=== PATIENT | male | born 1975 | race Caucasian/White ===

== ENCOUNTER 2017-03-18 17:01 | Inpatient (IN) ==
--- NOTE | 2017-03-18 17:34 | EKG Report ---
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
[2017-03-18 17:40] LABS: Basophils # 0.1 10*3/uL (0.0-0.2); Basophils % 0.3 % (0.0-0.8); Eosinophils # 0.2 10*3/uL (0.0-0.87); Eosinophils % 1.2 % (0.00-10.9); Hematocrit 38.2 VOL% (42.0-52.0); Hemoglobin 13.2 GM/DL (14.0-18.0); Immature Granulocytes % 0.9 %; Immature Granulocytes Absolute 0.16 #; Lymphocytes # 2.8 10*3/uL (1.4-4.0); Lymphocytes % 15.4 % (21.2-54.2); Mean Corpuscular HGB Conc 34.6 GM/DL (32-36); Mean Corpuscular Hemoglobin 33 PG (27-34); Mean Corpuscular Volume 95.5 FL (87-102); Mean Platelet Volume 9.6 FL (9.6-12.0); Monocytes # 1.1 10*3/uL (0.11-0.8); Neutrophils % 76.2 % (38.7-73.9); Platelet Count 367 T/CUMM (130-400); Red Cell Distribution Width 12.5 % (9.3-17.3); White Blood Count 18.4 T/CUMM (4-12)
--- NOTE | 2017-03-18 17:44 | XRay Report ---
Exam: XR chest 1V portable Date: 03/18/2017 5:19 PM Indication: Shortness of breath Comparison: 07/11/2015 Technical: AP portable Findings: the heart is normal in size. External cardiac leads are present. The mediastinum and bony structures reveal no acute findings. Impression: 1. No acute cardiothoracic pathology. PROCEDURE INTERPRETED AT [facility] Final Report Signed by: Dr. Cayetano Arreguin
[2017-03-18 18:00] LABS: INR 1.1; PT Patient Result 11.2 SECS; Partial Thromboplastin Time 28.3 SECS (0-40)
[2017-03-18 18:15] LABS: Alanine Aminotransferase 22 U/L (16-61); Albumin 3.3 G/DL (3.4-5.0); Alkaline Phosphatase 57 U/L (45-117); Aspartate Amino Transferase 18 U/L (0-37); Bilirubin,Total < 0.39 MG/DL (0.2-1.0); Blood Urea Nitrogen 14 MG/DL (7-18); Calcium 8.8 MG/DL (8.5-10.1); Glucose 98 MG/DL (74-106); Magnesium 1.9 MG/DL (1.8-2.4); Osmolality,Calculated 273.8 MOS/KG (273-304); Potassium 4.4 MMOL/L (3.5-5.1); Sodium 137 MMOL/L (136-145); Total Protein 6.5 G/DL (6.4-8.3); Troponin I Only < 0.015 NG/ML (0.00-0.045)
--- NOTE | 2017-03-18 19:57 | Emergency Department Note ---
Arrival - Arrival Chief Complaint: GI Bleed/Rectal Stated Complaint: throwing up blood/light headed ED Nursing Triage Note: patient throwing up blood and states he is light headed. Mode of Arrival: Ambulatory Time Seen by Provider: 03/18/17 18:02 - History of Present Illness HPI Narrative: This is a 41-year-old male who is otherwise healthy and has been complaining of some stomach upset over the past few days who was changing a tire in his car and started to feel dizzy as though he would pass out when he suddenly developed nausea and vomited blood clots on the living room floor which is on took pictures of and brought to the emergency department. The patient denies blood in his stool but just before vomiting he had a bowel movement which is around said was bloody. Vital signs are essentially normal although is slightly tachycardic. He has slight epigastric discomfort. He is a drinker of beer but did not drink today. His liver function studies are not abnormal. His INR is 1.1. He has no history of liver disease. He has no history of peptic ulcer disease. Allergies/Adverse Reactions: Allergies Allergy/AdvReac Type Severity Reaction Status Date / Time No Known Allergies Allergy Unverified 03/18/17 17:13 Review of System - Review of System Constitutional: Absent: fever, night sweats Eyes: Absent: redness, vision change Head/Ears/Nose/Throat: Absent: epistaxis, nasal drainage Respiratory: Absent: respiratory distress, wheezing Cardiovascular: Absent: dyspnea on exertion, orthopnea Gastrointestinal: Present: abdominal pain, vomiting, hematemesis, hematochezia Genitourinary male: Absent: hematuria, discharge Musculoskeletal: Absent: joint swelling, lower back pain, leg pain Skin: Absent: change in color, change in hair/nails Neurological: Absent: numbness, paresthesias Psychiatric: Absent: anxiety, depression Endocrine: Absent: heat intolerance, polydipsia Hematological/Lymphatic: Absent: easy bruising, lymphadenopathy Allergic/Immunologic: Absent: urticaria, itchy eyes Medical,Surgical,& Family Hx - Social History Smoking Status: Current every day smoker Frequency of Alcohol Use: Occasionally Type of Drug Use: None Exam Vital Signs: Vital Signs Temperature 98.9 F 03/18/17 17:29 Pulse Rate 53 L 03/18/17 18:45 Respiratory Rate 20 03/18/17 18:45 Blood Pressure 128/62 03/18/17 18:45 O2 Sat by Pulse Oximetry 97 03/18/17 18:45 - General Exam limited due to: ALOC - Head Head exam: Present: atraumatic, normocephalic - Eye Eye exam: Present: PERRL, EOMI - ENT ENT exam: Present: normal exam, normal oropharynx - Neck Neck exam: Present: normal inspection, full ROM - Chest Chest inspection: Present: normal inspection - Respiratory Respiratory exam: Present: normal lung sounds bilaterally - Cardiovascular Cardiovascular exam: Present: regular rate, normal rhythm - Abdominal Exam Abdominal exam: Present: soft, normal bowel sounds - Rectal Exam Rectal exam: Present: heme (+) stool - Extremities Exam Extremities exam: Present: normal inspection, full ROM - Back Exam Back exam: Present: normal inspection, full ROM - Neurological Exam Neurological exam: Present: alert, oriented X3, CN II-XII intact - Psychiatric Psychiatric exam: Present: normal affect, normal mood - Skin Skin exam: Present: warm, dry Results - Labs CBC & BMP: 03/18/17 17:25 03/18/17 17:25
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
[2017-03-18] MEDS ORDERED: ACETAMINOPHEN 325 MG TABLET PO PRN (23:53)
[2017-03-18] MEDS: PANTOPRAZOLE 40 MG VIAL IV SCH (23:59)
[2017-03-19] MEDS: MORPHINE 2 MG/1 ML SYRINGE IV PRN ×4 (00:01→19:07)
[2017-03-19] MEDS: ONDANSETRON 4 MG/2 ML VIAL IV PRN ×2 (00:01→09:02)
[2017-03-19] MEDS: SODIUM CHLORIDE 0.9% 1,000 ML IV SCH ×3 (00:02→17:07)
[2017-03-19 02:01] LABS: Basophils % 0.3 % (0.0-0.8); Eosinophils # 0.2 10*3/uL (0.0-0.87); Eosinophils % 1.7 % (0.00-10.9); Hematocrit 34.2 VOL% (42.0-52.0); Hemoglobin 11.7 GM/DL (14.0-18.0); Immature Granulocytes % 0.6 %; Immature Granulocytes Absolute 0.07 #; Lymphocytes # 4.5 10*3/uL (1.4-4.0); Lymphocytes % 37.2 % (21.2-54.2); Mean Corpuscular HGB Conc 34.2 GM/DL (32-36); Mean Corpuscular Hemoglobin 33 PG (27-34); Mean Corpuscular Volume 95.8 FL (87-102); Mean Platelet Volume 10.1 FL (9.6-12.0); Monocytes # 0.8 10*3/uL (0.11-0.8); Monocytes % 6.8 % (1.7-12.7); Neutrophils # 6.5 10*3/uL (1.4-7.4); Neutrophils % 53.4 % (38.7-73.9); Platelet Count 319 T/CUMM (130-400); Red Blood Count 3.57 MC/CUMM (3.8-5.5); Red Cell Distribution Width 12.7 % (9.3-17.3); White Blood Count 12.2 T/CUMM (4-12)
[2017-03-19] MEDS: cefTRIAXone 1,000 MG in SODIUM CHLORIDE 0.9% 100 ML IV SCH (06:30)
[2017-03-19 06:44] LABS: Basophils # 0.1 10*3/uL (0.0-0.2); Basophils % 0.5 % (0.0-0.8); Eosinophils # 0.3 10*3/uL (0.0-0.87); Eosinophils % 2.5 % (0.00-10.9); Hematocrit 34.2 VOL% (42.0-52.0); Hemoglobin 11.5 GM/DL (14.0-18.0); Immature Granulocytes % 0.8 %; Immature Granulocytes Absolute 0.08 #; Lymphocytes # 3.9 10*3/uL (1.4-4.0); Mean Corpuscular HGB Conc 33.6 GM/DL (32-36); Mean Corpuscular Hemoglobin 32 PG (27-34); Mean Corpuscular Volume 96.1 FL (87-102); Mean Platelet Volume 9.5 FL (9.6-12.0); Monocytes # 0.8 10*3/uL (0.11-0.8); Monocytes % 7.1 % (1.7-12.7); Neutrophils # 5.6 10*3/uL (1.4-7.4); Neutrophils % 52.1 % (38.7-73.9); Platelet Count 291 T/CUMM (130-400); Red Blood Count 3.56 MC/CUMM (3.8-5.5); Red Cell Distribution Width 12.8 % (9.3-17.3); White Blood Count 10.7 T/CUMM (4-12)
[2017-03-19 07:16] LABS: Bilirubin,Total 0.5 MG/DL (0.2-1.0); Calcium 8.7 MG/DL (8.5-10.1); Osmolality,Calculated 280.4 MOS/KG (273-304); Potassium 4.2 MMOL/L (3.5-5.1); Total Protein 6.1 G/DL (6.4-8.3)
[2017-03-19] MEDS: PANTOPRAZOLE 40 MG VIAL IV SCH ×2 (08:42→20:11)
[2017-03-19] MEDS: NICOTINE 21 MG/24 HR PATCH TRANSDERM PRN (09:02)
--- NOTE | 2017-03-19 09:53 | Gastrointestinal Consult Note ---
Assessment and Plan - Time spent with patient Time spent with patient: Greater than 30 minutes (1) Hematemesis with nausea Status: Acute Current Visit: Yes (2) Acute blood loss anemia Status: Acute Current Visit: Yes (3) Other specified counseling Status: Acute Current Visit: Yes History of Present Illness History of present illness: Mr. Medina is a 41 year old male Allergies Allergy/AdvReac Type Severity Reaction Status Date / Time No Known Allergies Allergy Unverified 03/18/17 17:13 Medical,Surgical,& Family Hx - Medical History Cardio: No history of: Cardiovascular Problems Psychological: History of: Depression, Previous Suicide Attempt Neurology: No history of: Neurological Problems Respiratory: No history of: Respiratory Problems Renal: No history of: Renal Problems Genitourinary: No history of: Problems Gastrointestinal: No history of: Liver Problems, GI Problems Musculoskeletal: History of: Back/Neck Problems - Social History Smoking Status: Current every day smoker Frequency of Alcohol Use: Occasionally Type of Drug Use: None Exam - Constitutional Vitals: Period Temp Pulse Resp BP Sys/Spears Pulse Ox Last 24 Hr 97 F-100.2 F 48-95 16-20 112-141/58-72 93-99 Results - Labs CBC & BMP: 03/19/17 06:28 03/19/17 06:28 Quality Measures - VTE Contraindication to Pharmacological VTE Prophylaxis: Active Bleeding - Stroke Symptom Onset Unknown: No Note Addendum: PLEASE NOTE -- automatic citation of patient information is unavoidable in this electronic note. I have made a reasonable effort to review the information cited , but it is not a part of my evaluation, impression, or recommendation unless specifically discussed in the dictated text that follows. As well, voice recognition software was used in the creation of this clinical note. Reasonable effort was made to identify and correct gross errors. Despite proofreading, errors in cylinder sander operator may be present, including nonsense verbiage at times. If you encounter such an error, please contact me at [phone] for discussion and correction. -- Paolo Chief complaint: vomiting blood History of present illness: This is a new patient, a 41-year-old male seen by consultation for evaluation of vomiting blood. The patient is admitted to the hospitalist service under the care of Dr. Sosa with a primary diagnosis of gastrointestinal bleeding. The patient was admitted through the emergency department last evening with primary complaint of sudden onset dizziness followed by vomiting bright red blood and recent history of dark tarry stool. Evaluation at that time revealed intact hemodynamics and near-normal hemoglobin of 13.2 g/dL but leukocytosis at 18.4. He notes that, one or two weeks ago he had an episode of severe sharp epigastric pain and what seemed to be associate constipation requiring treatment with laxative. The patient has a history of narcotic abuse and is equivocal on his drinking history, saying he sometimes drinks one or two sixpacks a day. He is not a regular NSAID user. He is unaware of any prior diagnosis of peptic ulcer or other gastrointestinal disease. Since his admission he has been treated empirically with Rocephin and proton pump inhibitor and supportively with crystalloid resuscitation and anti- emetic. He now reports feeling fairly normal. He is taking food without difficulty. He is without other complaints at present. Patient denies fever, chills, night sweats, rigors, headache, dizziness, neck pain, visual changes, redness of the eyes, dysphagia, odynophagia, difficulty chewing, chest pain, shortness of breath, diarrhea, hematochezia, melena, proctalgia, constipation, dysuria, skin changes, temperature regulation issues, flushing, easy bleeding/bruising, musculoskeletal pain, mental status change, numbness/weakness in the extremities, yellowing of the eyes/skin, cutaneous eruptions, and other complaints in general. Review of systems: 12 point review of systems was negative except as documented above. Outpatient medications: reviewed Inpatient medications: reviewed Past Medical History: depression with previous suicide attempt Social history: daily tobacco. Occasional alcohol. Episodic cocaine and marijuana use. Family history: father and paternal uncle with colorectal cancer at around 60 years of age Physical examination: Vital Signs: Current vital signs reviewed and documented above. General Appearance: well-appearing. Not acutely ill. Head: Normocephalic. Neck: Palpation of the neck revealed no abnormalities. Eyes: No scleral icterus. No scleral injection. No conjunctival pallor. Oral Cavity: Odor of breath was normal. No drooling was observed. Lips showed no abnormalities. Floor of the mouth showed no abnormalities. Pharynx: Oropharynx was normal. Lungs: Respiration rhythm and depth was normal. Cardiovascular: Heart rate and rhythm were normal. No murmurs were appreciated. Abdomen: abdomen was not distended. Abdominal palpation revealed no tenderness and no hepatosplenomegaly. Ascites was not discovered. Abdominal auscultation revealed positive bowel sounds. Musculoskeletal System: Musculoskeletal system was grossly normal. Neurological: level of consciousness was normal. Speech was normal. Skin: General appearance was normal. Color and pigmentation were normal. No skin lesions. Laboratory: white blood count 10.7, hemoglobin 11.5, hematocrit 34.2, platelets 291, INR 1.1, PT 11.2, ALT 20, AST 17, total bilirubin 0.5, BUN 19, creatinine 0.9, lipase 148 Radiology: reviewed Impressions: #1. Hematemesis -- the differential diagnosis includes peptic ulcer, gastritis/ esophagitis generally, Nadeen Colindres tear, arteriovenous malformation, and others. I agree with proton pump inhibitor, anti-emetic, and supportive care generally. I recommend continued monitoring of blood counts with transfusion as indicated and continued volume management with crystalloid resuscitation as indicated. We will plan and endoscopic evaluation with timing based on clinical progress, likely Tuesday. #2. Acute blood loss anemia -- likely the result of hematemesis. I recommend monitoring with transfusion as indicated and follow up with primary care for monitoring and management until normal. #3. Family history of colorectal cancer -- the patient is at increased risk for colorectal cancer and will generally need: cancer screening with colonoscopy no less frequently than every five years, beginning now. This can be accomplished as an outpatient. #4. Other specified counseling -- The patient was seen for greater than 30 minutes. The patient was counseled for greater than 50% of this time regarding differential diagnosis, likely diagnosis, diagnostic and therapeutic alternatives, risks/benefits/alternatives of medications and procedures, and plan of care generally. The patient expressed understanding and wishes to proceed. Recommendations: -- continued volume management -- monitor blood counts and transfuse as indicated -- agree with proton pump inhibitor -- advance diet -- upper endoscopy with timing based on clinical progress, likely Tuesday -- screening colonoscopy, outpatient ok -- thank you for this consultation. We will follow with you.
[2017-03-19 09:54] LABS: Apearance,Urine CLEAR (Clear); Bilirubin,Urine Negative (Negative); Blood, Urine Negative (Negative); Glucose,Urine (UA) Negative (Negative); Ketones,Urine Negative (Negative); Nitrite,Urine Negative (Negative); Protein,Urine Negative; RBC,Urine <1 /HPF (0-4); Urine Color Yellow (Yellow); Urine Specific Gravity 1.013 (1.001-1.035); Urine Urobilinogen < 2.0 EU/DL (0.2-1.0); WBC,Urine <1 /HPF (0-6)
--- NOTE | 2017-03-19 10:37 | Hospitalist Progress Note ---
Assessment and Plan (1) Hematemesis with nausea Status: Acute Assessment and plan: He has experienced no further episodes of hematemesis. Gastroenterology has been consulted. Current Visit: Yes (2) Acute blood loss anemia Status: Acute Assessment and plan: His hematocrit and hemoglobin are 34.2 and 11.5 respectively. Current Visit: Yes Hospitalist: Subjective Interval history: Patient feels well today. He has not experienced any further episodes of hematemesis. He denies abdominal pain. Gastroenterology has been consulted. Exam - Constitutional Vitals: Period Temp Pulse Resp BP Sys/Spears Pulse Ox Last 24 Hr 97 F-100.2 F 48-95 16-20 112-141/58-72 93-99 General appearance: normal weight - Head Head exam: Present: normal inspection - Neck Neck exam: Present: normal inspection - Respiratory Respiratory exam: Present: clear to auscultation bilaterally - Cardiovascular Cardiovascular exam: Present: regular rate and rhythm - GI/Abdominal GI/Abdominal exam: Present: normal bowel sounds, soft, other (Nontender with no palpable masses or hepatosplenomegaly.) - Extremities Exam Extremities exam: Present: normal inspection - Neurological Exam Neurological exam: Present: alert - Psychiatric Psychiatric exam: Present: normal affect - Skin Skin exam: Present: normal color, warm, intact Results - Labs CBC & BMP: 03/19/17 06:28 03/19/17 06:28 Quality Measures - VTE Contraindication to Pharmacological VTE Prophylaxis: Active Bleeding - Stroke Symptom Onset Unknown: No
[2017-03-20] MEDS: SODIUM CHLORIDE 0.9% 1,000 ML IV SCH ×2 (05:10→12:56)
[2017-03-20] MEDS: cefTRIAXone 1,000 MG in SODIUM CHLORIDE 0.9% 100 ML IV SCH (05:11)
[2017-03-20 07:07] LABS: Basophils % 0.2 % (0.0-0.8); Eosinophils # 0.3 10*3/uL (0.0-0.87); Eosinophils % 4.2 % (0.00-10.9); Hematocrit 31.3 VOL% (42.0-52.0); Hemoglobin 10.6 GM/DL (14.0-18.0); Immature Granulocytes % 0.5 %; Immature Granulocytes Absolute 0.04 #; Lymphocytes # 3.1 10*3/uL (1.4-4.0); Lymphocytes % 38.4 % (21.2-54.2); Mean Corpuscular HGB Conc 33.9 GM/DL (32-36); Mean Corpuscular Hemoglobin 33 PG (27-34); Mean Corpuscular Volume 96.9 FL (87-102); Mean Platelet Volume 10.1 FL (9.6-12.0); Monocytes # 0.6 10*3/uL (0.11-0.8); Monocytes % 7.6 % (1.7-12.7); Neutrophils % 49.1 % (38.7-73.9); Platelet Count 280 T/CUMM (130-400); Red Blood Count 3.23 MC/CUMM (3.8-5.5); Red Cell Distribution Width 12.8 % (9.3-17.3); White Blood Count 8.2 T/CUMM (4-12)
[2017-03-20 07:42] LABS: Calcium 8.3 MG/DL (8.5-10.1); Osmolality,Calculated 282.1 MOS/KG (273-304); Potassium 4.4 MMOL/L (3.5-5.1)
[2017-03-20] MEDS: PANTOPRAZOLE 40 MG VIAL IV SCH ×2 (08:42→21:41)
[2017-03-20] MEDS: NICOTINE 21 MG/24 HR PATCH TRANSDERM PRN (10:02)
--- NOTE | 2017-03-20 13:10 | Hospitalist Progress Note ---
Assessment and Plan (1) GI bleed Status: Acute Assessment and plan: No further bleeding at this time. Hemodynamics are stable. Plan for EGD in a.m. Current Visit: Yes (2) Acute blood loss anemia Status: Acute Assessment and plan: CBC in a.m. Current Visit: Yes Hospitalist: Subjective Interval history: The patient is resting comfortably. He has been able to ambulate on the floor. No further nausea or vomiting. Hematocrit appears to be stable. Scheduled for EGD on tomorrow. Exam - Constitutional Vitals: Period Temp Pulse Resp BP Sys/Spears Pulse Ox Last 24 Hr 97.1 F-98.5 F 47-83 18-20 99-131/52-82 95-99 General appearance: normal weight - Head Head exam: Present: normal inspection - ENT ENT exam: Present: normal exam - Neck Neck exam: Present: normal inspection - Respiratory Respiratory exam: Present: clear to auscultation bilaterally - Cardiovascular Cardiovascular exam: Present: regular rate and rhythm - GI/Abdominal GI/Abdominal exam: Present: normal bowel sounds - Extremities Exam Extremities exam: Present: normal inspection - Back Exam Back exam: Present: normal inspection - Neurological Exam Neurological exam: Present: alert, oriented X3, CN II-XII intact - Psychiatric Psychiatric exam: Present: normal affect, normal mood - Skin Skin exam: Present: normal color, dry Results - Labs CBC & BMP: 03/20/17 05:40 03/20/17 05:40 Quality Measures - VTE Contraindication to Pharmacological VTE Prophylaxis: Active Bleeding - Stroke Symptom Onset Unknown: No
[2017-03-20] MEDS: MORPHINE 2 MG/1 ML SYRINGE IV PRN (17:19)
[2017-03-21] MEDS: SODIUM CHLORIDE 0.9% 1,000 ML IV SCH ×4 (03:46→17:32)
[2017-03-21] MEDS: MORPHINE 2 MG/1 ML SYRINGE IV PRN ×2 (03:51→12:55)
[2017-03-21] MEDS: cefTRIAXone 1,000 MG in SODIUM CHLORIDE 0.9% 100 ML IV SCH (05:00)
[2017-03-21 06:44] LABS: Basophils % 0.4 % (0.0-0.8); Eosinophils # 0.3 10*3/uL (0.0-0.87); Eosinophils % 4.1 % (0.00-10.9); Hematocrit 29.5 VOL% (42.0-52.0); Hemoglobin 9.9 GM/DL (14.0-18.0); Immature Granulocytes % 0.4 %; Immature Granulocytes Absolute 0.03 #; Lymphocytes # 2.8 10*3/uL (1.4-4.0); Lymphocytes % 39.1 % (21.2-54.2); Mean Corpuscular HGB Conc 33.6 GM/DL (32-36); Mean Corpuscular Hemoglobin 33 PG (27-34); Mean Corpuscular Volume 97.4 FL (87-102); Mean Platelet Volume 10.1 FL (9.6-12.0); Monocytes # 0.5 10*3/uL (0.11-0.8); Monocytes % 7.1 % (1.7-12.7); Neutrophils # 3.4 10*3/uL (1.4-7.4); Neutrophils % 48.9 % (38.7-73.9); Platelet Count 245 T/CUMM (130-400); Red Blood Count 3.03 MC/CUMM (3.8-5.5); Red Cell Distribution Width 12.8 % (9.3-17.3)
[2017-03-21] MEDS ORDERED: LIDOCAINE 2% 5 ML VIAL ONE (11:33)
[2017-03-21] MEDS ORDERED: PROPOFOL 200 MG/20 ML VIAL IV ONE (11:33)
--- NOTE | 2017-03-21 11:42 | History and Physical Update ---
History and Physical Update - Physical Exam Mental Status: alert and oriented Heart: regular rate and rhythm Lung: clear to auscultation Abdomen: within normal limits Vitals: within normal limits
--- NOTE | 2017-03-21 11:45 | Operative Note ---
Date of procedure: 03/21/17 Pre-op diagnosis: Hematemesis Procedure: EGD 41-year-old white male admitted with hematemesis now for EGD to further evaluate. Informed consent was obtained the patient He was sedated with MAC anesthesia per anesthesia protocol. Patient was placed in left lateral decubitus position the Olympus flexible video upper endoscope was inserted into the oral cavity under direct vision the esophagus was intubated. Findings: Esophagus-normal esophageal mucosa with no significant abnormality in the proximal mid esophagus. The distal esophagus small hiatal hernia hernia and what appears to be healing Nadeen-Colindres tear. No varices or Telles's was identified no stricture was seen. Stomach-normal insufflation normal mucosa to direct retroflexed views of the body fundus cardia and antrum the stomach. Pylorus-pyloric channel duodenal bulb ulceration approximately 1 cm deep ulcer with no visible vessel no active bleeding. Duodenum-ulcer as above otherwise normal to the third portion of duodenum. The procedure terminated placed our procedure well his discharge recovery in good condition. Postop diagnosis: 1. Acute pyloric channel duodenal bulb ulcer-no active bleeding continue PPI treatment avoid nonsteroidals. Check stool for H. pylori if positive will treat 2. Nadeen-Colindres tear no specific treatment other than continued acid suppression and avoidance of vomiting. Anesthesia: MAC Surgeon / Physician: Pa Guillaume Estimated blood loss: none Specimens: none sent Condition: stable Disposition: post procedure unit Results - Labs CBC & BMP: 03/21/17 05:48 03/20/17 05:40
--- NOTE | 2017-03-21 11:46 | Anesthesia Post-Op ---
Anesthesia Post OP - Post Ansesthetic Evaluation Patient seen in post op: Yes Resp: within normal limits CV: within normal limits Mental: within normal limits Temp: within normal limits [id number]-Uiloawove: within normal limits Nausea and Vomiting: within normal limits Pain: within normal limits
[2017-03-21] MEDS: PANTOPRAZOLE 40 MG VIAL IV SCH ×2 (12:50→20:35)
[2017-03-21] MEDS: NICOTINE 21 MG/24 HR PATCH TRANSDERM PRN (12:58)
--- NOTE | 2017-03-21 15:29 | Hospitalist Progress Note ---
Assessment and Plan (1) GI bleed Status: Acute Assessment and plan: EGD showed 1. Acute pyloric channel duodenal bulb ulcer-no active bleeding 2. Nadeen-Colindres tear Plan Follow GI's recommendations Monitor cbc DC soon Current Visit: Yes (2) Depression Status: Chronic Assessment and plan: stable Current Visit: Yes (3) Leukocytosis Status: Acute Assessment and plan: Resolved. BC, UC are negative Consider dcing Rocephin Current Visit: Yes Hospitalist: Subjective Interval history: Patient seen, no episode of hemetemesis since admission.He had an EGD today Exam - Constitutional Vitals: Period Temp Pulse Resp BP Sys/Spears Pulse Ox Last 24 Hr 97 F-98.6 F 63-86 16-20 111-145/59-78 93-100 General appearance: no acute distress - Head Head exam: Present: normal inspection - Eye Eye exam: Present: EOMI - Respiratory Respiratory exam: Present: clear to auscultation bilaterally - Cardiovascular Cardiovascular exam: Present: regular rate and rhythm - GI/Abdominal GI/Abdominal exam: Present: normal bowel sounds - Extremities Exam Extremities exam: Present: normal inspection - Neurological Exam Neurological exam: Present: alert, oriented X3 Results - Labs CBC & BMP: 03/21/17 05:48 03/20/17 05:40 Lab Results: I have reviewed the past 24 hour labs Quality Measures - VTE Contraindication to Pharmacological VTE Prophylaxis: Active Bleeding - Stroke Symptom Onset Unknown: No
[2017-03-22] MEDS: SODIUM CHLORIDE 0.9% 1,000 ML IV SCH ×3 (02:01→20:41)
[2017-03-22] MEDS: cefTRIAXone 1,000 MG in SODIUM CHLORIDE 0.9% 100 ML IV SCH (05:12)
--- NOTE | 2017-03-22 07:59 | Gastrointestinal Progress Note ---
Assessment and Plan (1) Hematemesis with nausea Status: Acute Assessment and plan: 03/22-no complaints of abdominal pain, nausea or vomiting. No overt bleeding. EGD findings noted as below. H&H stable at 04/22. H. pylori stool results pending. Plan an addendum to followed by Dr. Mccray. Current Visit: Yes Gastroenterology - PN: Subj Interval history: CC: Hematemesis Patient is seen, asleep, however easily arousable to verbal stimuli. States he had an uneventful night. He is denying any abdominal pain, nausea or vomiting. He is tolerating regular diet without difficulty. Denies any signs of overt bleeding. EGD findings on yesterday of pyloric channel duodenal bulb ulcer as well as Nadeen-Colindres tear. Stools are pending for H. pylori. H&H is stable at 04/22. Abdomen soft, nontender. ROS: Denies shortness of breath or chest pain Exam (Progress Note) - Constitutional Vitals: Period Temp Pulse Resp BP Sys/Spears Pulse Ox Last 24 Hr 96.8 F-97.7 F 59-97 16-20 118-154/68-87 95-100 General appearance: normal weight, no acute distress - Head Head exam: Present: normal inspection, normocephalic - Eye Eye exam: Present: other (Lids and conjunctive are unremarkable). Absent: scleral icterus - ENT ENT exam: Present: normal exam, normal oropharynx - Neck Neck exam: Present: normal inspection - Respiratory Respiratory exam: Present: clear to auscultation bilaterally. Absent: rales, rhonchi, wheezes - Cardiovascular Cardiovascular exam: Present: regular rate and rhythm. Absent: diastolic murmur , JVD, systolic murmur - GI/Abdominal GI/Abdominal exam: Present: normal bowel sounds, soft. Absent: ascites, distended, mass, organomegaly, tenderness - Extremities Exam Extremities exam: Present: normal inspection, full ROM - Back Exam Back exam: Present: normal inspection - Neurological Exam Neurological exam: Present: alert, oriented X3 - Psychiatric Psychiatric exam: Present: normal affect, normal mood - Skin Skin exam: Present: normal color, warm, dry Results - Labs CBC & BMP: 03/21/17 05:48 03/20/17 05:40 Lab Results: I have reviewed the past 24 hour labs
[2017-03-22] MEDS: PANTOPRAZOLE 40 MG VIAL IV SCH ×2 (09:40→20:38)
[2017-03-22] MEDS ORDERED: CYCLOBENZAPRINE 10 MG TABLET PO PRN (11:36)
--- NOTE | 2017-03-22 11:36 | Hospitalist Progress Note ---
Hospitalist: Subjective Interval history: Patient has no complaints of hematemesis/n,v/abdominal. He notes some unchanged chronic LBP. Exam - Constitutional Vitals: Period Temp Pulse Resp BP Sys/Spears Pulse Ox Last 24 Hr 96.8 F-97.7 F 59-97 16-20 118-154/66-87 95-100 General appearance: over weight - Head Head exam: Present: normal inspection - Eye Eye exam: Present: EOMI Pupils: Present: PARESH - Respiratory Respiratory exam: Present: clear to auscultation bilaterally. Absent: rales, rhonchi, wheezes - Cardiovascular Cardiovascular exam: Present: regular rate and rhythm - GI/Abdominal GI/Abdominal exam: Present: normal bowel sounds, soft. Absent: distended, tenderness - Extremities Exam Extremities exam: Absent: edema - Neurological Exam Neurological exam: Present: oriented X3 - Psychiatric Psychiatric exam: Present: normal affect, normal mood Results - Labs CBC & BMP: 03/21/17 05:48 03/20/17 05:40 - Impressions 1. UGIB: 2nd to duodenal ulcer; seen by GI and noted plan for stool H. pylori antigen; on PPI 2. ABLA 2nd to GIB: Most recent HCT (03/21) is slowing dropping (03/19: 34); on PPI; monitor; transfuse if hb<7 or <8 if symptomatic 3. Leukocytosis: resolved based on wbc 03/21/17; afebrile; bcx/ucx negative; will d/c rocephin 4. Tobacco use: on nicotine patch 5. Chronic low back pain: avoid opioids as much as possible; avoid NSAIDs as well; muscle relaxant prn Plan: as noted above; follow up labs Quality Measures - VTE Contraindication to Pharmacological VTE Prophylaxis: Active Bleeding - Stroke Symptom Onset Unknown: No
--- NOTE | 2017-03-22 15:05 | Gastrointestinal Progress Note ---
<KinNica Mervin - Last Filed: 03/22/17 15:04> Assessment and Plan (1) Hematemesis with nausea Status: Acute Assessment and plan: 03/22-no complaints of abdominal pain, nausea or vomiting. No overt bleeding. EGD findings noted as below. H&H stable at 04/22. H. pylori stool results pending. Plan an addendum to followed by Dr. Guillaume. Current Visit: Yes Gastroenterology - PN: Subj Interval history: CC: Hematemesis Patient is seen, asleep, however easily arousable to verbal stimuli. States he had an uneventful night. He is denying any abdominal pain, nausea or vomiting. He is tolerating regular diet without difficulty. Denies any signs of overt bleeding. EGD findings on yesterday of pyloric channel duodenal bulb ulcer as well as Nadeen-Colindres tear. Stools are pending for H. pylori. H&H is stable at 04/22. Abdomen soft, nontender. ROS: Denies shortness of breath or chest pain Period Temp Pulse Resp BP Sys/Spears Pulse Ox Last 24 Hr 96.8 F-97.7 F 59-97 16-20 118-154/68-87 95-100 Exam (Progress Note) - Constitutional Vitals: Period Temp Pulse Resp BP Sys/Spears Pulse Ox Last 24 Hr 96.8 F-98.6 F 59-97 16-20 118-154/66-87 95-98 - Other Additional findings: General appearance: normal weight, no acute distress - Head Head exam: Present: normal inspection, normocephalic - Eye Eye exam: Present: other (Lids and conjunctive are unremarkable). Absent: scleral icterus - ENT ENT exam: Present: normal exam, normal oropharynx - Neck Neck exam: Present: normal inspection - Respiratory Respiratory exam: Present: clear to auscultation bilaterally. Absent: rales, rhonchi, wheezes - Cardiovascular Cardiovascular exam: Present: regular rate and rhythm. Absent: diastolic murmur , JVD, systolic murmur - GI/Abdominal GI/Abdominal exam: Present: normal bowel sounds, soft. Absent: ascites, distended, mass, organomegaly, tenderness - Extremities Exam Extremities exam: Present: normal inspection, full ROM - Back Exam Back exam: Present: normal inspection - Neurological Exam Neurological exam: Present: alert, oriented X3 - Psychiatric Psychiatric exam: Present: normal affect, normal mood - Skin Skin exam: Present: normal color, warm, dry Results - Labs CBC & BMP: 03/21/17 05:48 03/20/17 05:40 Lab Results: I have reviewed the past 24 hour labs <Pa Guillaume - Last Filed: 03/22/17 16:56> Exam (Progress Note) - Constitutional Vitals: Period Temp Pulse Resp BP Sys/Spears Pulse Ox Last 24 Hr 96.9 F-98.6 F 68-97 16-20 118-154/66-86 95-98 Results - Labs CBC & BMP: 03/21/17 05:48 03/20/17 05:40
[2017-03-22] MEDS: MORPHINE 2 MG/1 ML SYRINGE IV PRN (17:38)
[2017-03-22 18:52] LABS: Apearance,Urine CLEAR (Clear); Bilirubin,Urine Negative (Negative); Blood, Urine NEGATIVE (Negative); Glucose,Urine (UA) Negative (Negative); Ketones,Urine Negative (Negative); Nitrite,Urine Negative (Negative); Protein,Urine Negative; RBC,Urine 1 /HPF (0-4); Urine Color Yellow (Yellow); Urine Specific Gravity 1.005 (1.001-1.035); Urine Urobilinogen 0.2 EU/DL (0.2-1.0)
[2017-03-23] MEDS: SODIUM CHLORIDE 0.9% 1,000 ML IV SCH ×2 (04:46→10:21)
[2017-03-23 08:53] VITALS: BP 119/83
[2017-03-23] MEDS: PANTOPRAZOLE 40 MG VIAL IV SCH (10:28)
--- NOTE | 2017-03-23 10:37 | Discharge Summary ---
Hospital Course - Hospital Course Hospital Course: Patient was admitted with complaints of hematemesis. He was started on PPI and given IVFs. His h/h was monitored, and he did not require transfusion. He was seen by GI and an EGD was done. It showed an acute pyloric channel duodenal bulb ulcer and a healed M-W tear. Recommendation was to continue PPI. He will need to avoid NSAID therapy. Patient has remained hemodynamically and clinically stable. h/h have been fairly stable. He is safe for discharge. Discharge diagnosis: 1. Hematemesis 2. Acute pyloric channel duodenal bulb ulcer 3. Acute blood loss anemia: h/h stable 4. family history of colorectal cancer: GI recommended outpatient colonoscopy Discharge medications: see medication reconcilation list Discharge status: stable Discharge disposition: home Follow up: with PCP in 1-2 weeks; patient does not have a PCM; so, he will see a provider at the [facility] Function, elimination, and locomotion: independent Discharge Plan - Discharge Data Condition at Discharge: Stable Discharge Diet: regular diet (avoid motrin, aleeve, naprosyn, etc) Activity: resume usual activities as tolerated Hygiene: no restrictions - Discharge Medications New Pantoprazole Tab [Protonix Tab] 40 mg PO BID #60 tablet - Follow Up or Referral - Forms/Instructions Additional Discharge Instructions: follow up with a provider at the [facility] in 1-2 weeks Exam - Constitutional Vitals: Period Temp Pulse Resp BP Sys/Spears Pulse Ox Last 24 Hr 96.5 F-98.6 F 65-90 16-22 119-143/76-95 95-97 General appearance: over weight - Head Head exam: Present: normal inspection - Eye Eye exam: Present: EOMI Pupils: Present: PARESH - ENT ENT exam: Present: normal exam - Respiratory Respiratory exam: Present: clear to auscultation bilaterally. Absent: rales, rhonchi, wheezes - Cardiovascular Cardiovascular exam: Present: regular rate and rhythm. Absent: diastolic murmur , systolic murmur - GI/Abdominal GI/Abdominal exam: Present: normal bowel sounds, soft. Absent: mass, tenderness - Extremities Exam Extremities exam: Present: normal inspection. Absent: edema - Neurological Exam Neurological exam: Present: alert, oriented X3 - Psychiatric Psychiatric exam: Present: normal affect, normal mood Discharge Results Procedures and tests throughout hospitalization: Pending Orders 03/19/17 06:28 Blood Culture Routine 03/20/17 Helicobacter pylori Ag Feces Routine Occult Blood, Stool Routine Labs on day of discharge: Labs from last 24 hours 03/22/17 17:31 Urine Color Yellow Urine Appearance Clear Urine pH 7.0 Ur Specific [place] 1.005 Urine Protein Negative Urine Glucose (UA) Negative Urine Ketones Negative Urine Blood Negative Urine Nitrate Negative Urine Bilirubin Negative Urine Urobilinogen 0.2 Urine Leukocytes Negative Urine RBC 1 Ur Culture Indicated? Not indicated Preliminary micro results at discharge 03/19/17 06:28 Blood Culture - Preliminary Blood No growth at 3 days 03/19/17 06:27 Blood Culture - Preliminary Blood No growth at 3 days DS: Provider Date of admission: 03/18/17 20:46 Primary care physician: . No PCP Attending physician on admission: Isamar Martinez MD Consults: 03/18/17 23:53 Consult to Physician [CONS] Routine Comment: GI bleed Consulting Provider: Pa Guillaume Person Notified: Nica Date Notified: 03/21/17 Time Notified: 08:29 Consult Notification Comment: Discharging clinician: Belen Barriga MD
== END 2017-03-23 10:40 | disposition home or self-care (01) | DRG 369 ==
LOC: N.ED 17:01 → SUATTDRO 20:46 → N.EDINP 20:54 → N.5E 22:04
PROVIDERS: ADMIT Internal Medicine; ATTEND Internal Medicine

== ENCOUNTER 2019-09-05 12:05 | Inpatient (IN) ==
[2019-09-05 13:25] LABS: Eosinophils % 0.2 % (0.00-10.9); Immature Granulocytes % 0.6 %; Immature Granulocytes Absolute 0.05 #; Lymphocytes % 12.4 % (21.2-54.2); Mean Corpuscular HGB Conc 30.4 GM/DL (32-36); Mean Corpuscular Volume 100.6 FL (87-102); Mean Platelet Volume 11.3 FL (9.6-12.0); Monocytes % 4.8 % (1.7-12.7); NRBC # 0.04 10*3/uL; Platelet Count 400 T/CUMM (130-400); Red Cell Distribution Width 14.9 % (9.3-17.3); White Blood Count 8.2 T/CUMM (4-12)
[2019-09-05 13:26] LABS: Apearance,Urine CLEAR (Clear); Bilirubin,Urine Negative (Negative); Blood, Urine Negative (Negative); Glucose,Urine (UA) Negative (Negative); Ketones,Urine Negative (Negative); Nitrite,Urine Negative (Negative); Protein,Urine Negative; RBC,Urine 2 /HPF (0-4); Urine Color Straw (Yellow); Urine Specific Gravity 1.006 (1.001-1.035); Urine Urobilinogen < 2.0 EU/DL (0.2-1.0)
[2019-09-05 13:29] LABS: Hematocrit 17.1 VOL% (42.0-52.0); Hemoglobin 5.2 GM/DL (14.0-18.0)
[2019-09-05] MEDS ORDERED: PANTOPRAZOLE 40 MG VIAL IV STA (13:32)
[2019-09-05 13:33] LABS: Barbiturates Screen,Urine Negative (Negative); Benzodiazepines Screen,Urine Negative (Negative); Cannabinoid Screen,Urine Negative (Negative); Opiate Screen,Urine Negative (Negative); Phencyclidine Screen,Urine Negative (Negative)
[2019-09-05] MEDS ORDERED: SODIUM CHLORIDE 0.9% 1,000 ML IV STA (13:33)
[2019-09-05 13:48] LABS: Albumin 3.3 G/DL (3.4-5.0); Bilirubin,Total 0.8 MG/DL (0.2-1.0); Calcium 8.1 MG/DL (8.5-10.1); Osmolality,Calculated 274.5 MOS/KG (273-304); Total Protein 5.8 G/DL (6.4-8.3)
[2019-09-05] MEDS ORDERED: ONDANSETRON 4 MG/2 ML VIAL IV STA (13:51)
[2019-09-05] MEDS ORDERED: HYDROmorphone 2 MG/1 ML VIAL IV STA (13:51)
[2019-09-05 14:24] LABS: % Iron Saturation 3.1 % (18-50); Ferritin 6.3 ng/ml (26-388)
[2019-09-05] MEDS ORDERED: LACTULOSE 20 GM/30 ML UDCUP PO PRN (14:33)
[2019-09-05] MEDS ORDERED: ACETAMINOPHEN 325 MG TABLET PO PRN (14:33)
[2019-09-05 14:40] LABS: Folate 4.9 NG/ML (5.4-24.0)
[2019-09-05] MEDS ORDERED: SODIUM CHLORIDE 0.9% 1,000 ML IV PRN (14:42)
[2019-09-05 17:50] LABS: Risk Ratio 2.65; Thyroid Stimulating Hormone 3.04 uIU/ml (0.358-3.74); VLDL CHOLESTEROL 20.4 MG/DL
[2019-09-05] MEDS ORDERED: INFLUENZA VIRUS VACCINE 0.5 ML SYRINGE IM ONE (19:06)
[2019-09-05] MEDS ORDERED: NICOTINE 21 MG/24 HR PATCH TRANSDERM PRN (20:19)
[2019-09-05] MEDS: PANTOPRAZOLE 40 MG TABLET PO SCH (20:53)
[2019-09-05] MEDS: ONDANSETRON 4 MG/2 ML VIAL IV PRN (22:45)
[2019-09-06 02:38] LABS: Basophils % 0.1 % (0.0-0.8); Eosinophils # 0.1 10*3/uL (0.0-0.87); Eosinophils % 0.7 % (0.00-10.9); Hematocrit 21.2 VOL% (42.0-52.0); Hemoglobin 6.5 GM/DL (14.0-18.0); Immature Granulocytes % 0.4 %; Immature Granulocytes Absolute 0.04 #; Lymphocytes # 4.4 10*3/uL (1.4-4.0); Lymphocytes % 44.7 % (21.2-54.2); Mean Corpuscular HGB Conc 30.7 GM/DL (32-36); Mean Corpuscular Volume 94.6 FL (87-102); Mean Platelet Volume 9.8 FL (9.6-12.0); Monocytes % 7.4 % (1.7-12.7); NRBC # 0.05 10*3/uL; Neutrophils % 46.7 % (38.7-73.9); Platelet Count 445 T/CUMM (130-400); Red Blood Count 2.24 MC/CUMM (3.8-5.5); Red Cell Distribution Width 16.2 % (9.3-17.3); White Blood Count 9.8 T/CUMM (4-12)
[2019-09-06 03:02] LABS: Calcium 7.8 MG/DL (8.5-10.1); Osmolality,Calculated 269.8 MOS/KG (273-304)
[2019-09-06] MEDS ORDERED: SODIUM CHLORIDE 0.9% 1,000 ML IV PRN (07:35)
[2019-09-06] MEDS ORDERED: MORPHINE 4 MG/1 ML VIAL IV ONE (08:23)
[2019-09-06] MEDS: ONDANSETRON 4 MG/2 ML VIAL IV PRN (08:42)
[2019-09-06] MEDS ORDERED: PANTOPRAZOLE 40 MG TABLET PO SCH (09:00)
[2019-09-06] MEDS ORDERED: propofoL 200 MG/20 ML VIAL IV ONE (09:00)
[2019-09-06] MEDS ORDERED: LIDOCAINE 2% 5 ML VIAL ONE (09:00)
[2019-09-06] MEDS: PANTOPRAZOLE 40 MG TABLET PO SCH (10:11)
[2019-09-06] MEDS: LACTATED RINGERS 1,000 ML IV SCH (11:45)
[2019-09-06] MEDS: PANTOPRAZOLE 40 MG VIAL IV SCH ×2 (13:10→21:59)
[2019-09-06 13:13] LABS: Hematocrit 26.6 VOL% (42.0-52.0); Hemoglobin 8.1 GM/DL (14.0-18.0)
[2019-09-07 05:48] LABS: Basophils % 0.3 % (0.0-0.8); Eosinophils # 0.1 10*3/uL (0.0-0.87); Eosinophils % 1.8 % (0.00-10.9); Hemoglobin 8.5 GM/DL (14.0-18.0); Immature Granulocytes % 0.3 %; Immature Granulocytes Absolute 0.02 #; Lymphocytes # 3.3 10*3/uL (1.4-4.0); Lymphocytes % 47.3 % (21.2-54.2); Mean Corpuscular HGB Conc 31.5 GM/DL (32-36); Mean Corpuscular Volume 92.8 FL (87-102); Mean Platelet Volume 9.7 FL (9.6-12.0); Monocytes % 11.1 % (1.7-12.7); Neutrophils % 39.2 % (38.7-73.9); Platelet Count 469 T/CUMM (130-400); Red Blood Count 2.91 MC/CUMM (3.8-5.5); Red Cell Distribution Width 16.4 % (9.3-17.3)
[2019-09-07 06:15] LABS: Calcium 7.9 MG/DL (8.5-10.1); Osmolality,Calculated 275.4 MOS/KG (273-304)
[2019-09-07] MEDS: PANTOPRAZOLE 40 MG VIAL IV SCH (08:35)
[2019-09-07 12:21] VITALS: BP 133/81
[2019-09-07] MEDS: LACTATED RINGERS 1,000 ML IV SCH (12:30)
== END 2019-09-07 14:50 | disposition home or self-care (01) | DRG 254 ==
LOC: N.ED 12:05 → SUATTDRO 14:33 → N.EDINP 14:33 → N.5E 15:00
PROVIDERS: ADMIT Nurse Practitioner Family; ATTEND Family Medicine